=== PATIENT | female | born 1950 | race Caucasian/White ===

== ENCOUNTER 2018-02-18 21:08 | Emergency (ER) | payer OTHER ==
[~2018-02-18] VITALS: Ht 157.5 cm; Wt 61.2 kg
[~2018-02-18 21:08] MED LIST: ATIVAN1 MG PO; ATORVASTATIN CA40 MG PO; CIPROFLOXACIN750 MG PO; DOCUSATE SODIU100 MG PO; GABAPENTIN800 MG PO; LOTREL 5-20 MG1 CAP PO; PERCOCET 10-321 EACH PO; PERCOCET 5-3251 EACH PO; RESTORIL30 M1 PO; SERTRALINE HCL100 MG PO
[2018-02-18] MEDS ORDERED: PERCOCET 10-321 EACH PO (21:18)
[2018-02-18] MEDS ORDERED: LORAZEPAM1 MG PO (21:18)
[2018-02-18] MEDS ORDERED: CLONAZEPAM1 MG PO (21:20)
== END 2018-02-19 00:07 | disposition home or self-care (01) ==
LOC: ER 21:08
DX: G89.18 Other acute postprocedural pain (principal); M54.5 Low back pain

== ENCOUNTER 2018-03-10 14:26 | Emergency (ER) | payer OTHER, BC ==
[~2018-03-10] VITALS: Ht 154.9 cm; Wt 57.6 kg
[~2018-03-10 14:26] MED LIST changes: +CLONAZEPAM1 MG PO; +LORAZEPAM1 MG PO
[2018-03-10] MEDS ORDERED: MEDROLPACK PO (19:01)
[2018-03-10] MEDS ORDERED: ATIVAN1 M1 PO (19:05)
[2018-03-10] MEDS ORDERED: RESTORIL30 MG PO (19:05)
== END 2018-03-10 20:58 | disposition home or self-care (01) ==
LOC: ER 14:26
DX: G89.18 Other acute postprocedural pain (principal); M25.552 Pain in left hip; M54.5 Low back pain; F45.42 Pain disorder with related psychological factors